=== PATIENT | male | born 1995 | race Caucasian/White ===

== ENCOUNTER 2019-10-22 00:50 | Emergency (ER) | payer OTHER, SELFPAY ==
[~2019-10-22] VITALS: Ht 165.1 cm; Wt 97.5 kg
[2019-10-22 01:18] VITALS: BP 140/85
--- NOTE | 2019-10-22 01:21 | NUR ---
PT IN TENT
--- NOTE | 2019-10-22 01:50 | NUR ---
COVID SWAB COLLECTED AND WALKED OVER TO LAB.
--- NOTE | 2019-10-22 02:10 | NUR ---
Patient discharged with v/s stable. Written and verbal after care instructions given and explained. Patient alert, oriented and verbalized understanding of instructions. Ambulatory with steady gait. All questions addressed prior to discharge. ID band removed. Patient advised to follow up with PMD. Rx of ALBUTEROL AND ZOFRAN given. Patient educated on indication of medication including possible reaction and side effects. Opportunity to ask questions provided and answered.
[2019-10-22 02:26] VITALS: BP 140/85
== END 2019-10-22 02:10 | disposition home or self-care (01) ==
LOC: MED 00:50
DX: J18.9 Pneumonia, unspecified organism (principal); Z20.828 Contact with and (suspected) exposure to other viral communicable diseases
CPT/HCPCS: 99283; U0003

== ENCOUNTER 2020-03-14 10:23 | Emergency (ER) | payer OTHER, SELFPAY ==
[~2020-03-14] VITALS: Ht 167.6 cm; Wt 97.5 kg
[2020-03-14 10:30] VITALS: BP 125/68
--- NOTE | 2020-03-14 10:32 | NUR ---
Patient placed in tent for covid precaution
--- NOTE | 2020-03-14 10:34 | NUR ---
25 y/o male from home c/o headache, chest discomfort, and loss of smell since 03/01. Unknown + covid contact. Denies SOB. RR even and unlabored. States 5/10 pressure to sternal chest. Awake and alert. VSS
--- NOTE | 2020-03-14 11:04 | NUR ---
Covid swab collected and walked to lab.
== END 2020-03-14 12:07 | disposition home or self-care (01) ==
LOC: MED 10:23
DX: R05 Cough (principal); Z20.828 Contact with and (suspected) exposure to other viral communicable diseases
CPT/HCPCS: 99283; U0003

== ENCOUNTER 2020-04-11 13:52 | Emergency (ER) | payer OTHER ==
[~2020-04-11] VITALS: Ht 165.1 cm; Wt 99.8 kg
[2020-04-11 14:02] VITALS: BP 125/79
--- NOTE | 2020-04-11 14:30 | NUR ---
25 YEAR OLD MALE COMPLAINS OF CHEST/ABDOMINAL TINGLE + PAIN SINCE YESTERDAY. PT STATES HE IS UNSURE IT IS PAIN, BUT FEELS THE SENSATION ON AND OFF. PT AOX4, BREATHING EVEN AND UNLABORED, SKIN WARM AND DRY. PMH - HYPOTHYROID, ANXIETY, HTN ALLERGIES - NKA
[2020-04-11 15:06] VITALS: BP 125/79
--- NOTE | 2020-04-11 15:06 | NUR ---
Patient discharged with v/s stable. Written and verbal after care instructions given and explained. Patient verbalized understanding. Ambulatory with steady gait. All questions addressed prior to discharge. Advised to follow up with PMD.
== END 2020-04-11 15:06 | disposition home or self-care (01) ==
LOC: MED 13:52
DX: F41.9 Anxiety disorder, unspecified (principal); I10 Essential (primary) hypertension; E07.89 Other specified disorders of thyroid; Z91.14 Patient's other noncompliance with medication regimen; Z90.49 Acquired absence of other specified parts of digestive tract
CPT/HCPCS: 81002; 99282

== ENCOUNTER 2020-07-30 16:19 | Emergency (ER) | payer OTHER ==
[~2020-07-30] VITALS: Ht 165.1 cm; Wt 102.1 kg
[2020-07-30 16:39] VITALS: BP 154/90
--- NOTE | 2020-07-30 17:53 | NUR ---
25/M BIB SELF C/O 08/04 NECK, SHOULDERS, LEGS PAIN X TODAY. DENIES TRAUMA. PMH: DEPRESSION, ANXIETY, SLEEP APNEA, HYPERTHYROID. DENIES N/V/D; SKIN IS PINK/WARM/DRY; AAOX4 WITH EVEN AND STEADY GAIT; LUNGS CLEAR BL; HR EVEN AND REGULAR; PT DENIES ANY FEVER, CP, SOB, OR COUGH AT THIS TIME.
[2020-07-30] MEDS ORDERED: METH750T5 PO (18:12)
[2020-07-30] MEDS ORDERED: NAPR-54 PO (18:12)
--- NOTE | 2020-07-30 18:20 | NUR ---
Patient discharged with v/s stable. Written and verbal after care instructions given and explained. Patient alert, oriented and verbalized understanding of instructions. Ambulatory with steady gait. All questions addressed prior to discharge. ID band removed. Patient advised to follow up with PMD. Rx of ROBAXIN & NAPROXEN given. Patient educated on indication of medication including possible reaction and side effects. Opportunity to ask questions provided and answered.
[2020-07-30 18:21] VITALS: BP 154/90
== END 2020-07-30 18:20 | disposition home or self-care (01) ==
LOC: MED 16:19
DX: S16.1XXA Strain of muscle, fascia and tendon at neck level, initial encounter (principal); M79.10 Myalgia, unspecified site; F32.9 Major depressive disorder, single episode, unspecified; F41.9 Anxiety disorder, unspecified; I10 Essential (primary) hypertension; E03.9 Hypothyroidism, unspecified; X58.XXXA Exposure to other specified factors, initial encounter; Y93.89 Activity, other specified; Y92.89 Other specified places as the place of occurrence of the external cause; Y99.8 Other external cause status
CPT/HCPCS: 81002; 99283

== ENCOUNTER 2020-11-14 09:39 | Emergency (ER) | payer OTHER ==
[~2020-11-14] VITALS: Ht 165.1 cm; Wt 105.2 kg
[~2020-11-14 09:39] MED LIST: METH750T5 PO; NAPR-54 PO
[2020-11-14 09:59] VITALS: BP 128/75
--- NOTE | 2020-11-14 10:02 | NUR ---
PT TO LOBBY.
--- NOTE | 2020-11-14 10:31 | NUR ---
PT IN TRIAGE FOR EKG WITH EMT.
--- NOTE | 2020-11-14 10:36 | NUR ---
PT TO WAIT IN LOBBY.
--- NOTE | 2020-11-14 11:51 | NUR ---
PT CALLED BY [facility] NO ANSWER.
--- NOTE | 2020-11-14 12:25 | NUR ---
PATIENT LEFT WITHOUT BEING SEEN BY DR. RODGERS. NO FURTHER CARE PROVIDED FOR PATIENT.
== END 2020-11-14 12:25 | disposition left against medical advice (07) ==
LOC: MED 09:39
DX: R00.2 Palpitations (principal); Z53.21 Procedure and treatment not carried out due to patient leaving prior to being seen by health care provider
CPT/HCPCS: 93005; 99281

== ENCOUNTER 2020-11-14 12:47 | Emergency (ER) | payer OTHER ==
--- NOTE | 2020-11-14 12:55 | NUR ---
Called pt for triage and no answer. Went outside to check covid tent and no one there.
--- NOTE | 2020-11-14 13:15 | NUR ---
Called pt for triage for second time and no answer. Went outside to check covid tent and no one there.
--- NOTE | 2020-11-14 13:21 | NUR ---
made aware. Pt LWBS.
== END 2020-11-14 12:55 | disposition left against medical advice (07) ==
LOC: MED 12:47
DX: Z53.21 Procedure and treatment not carried out due to patient leaving prior to being seen by health care provider (principal)

== ENCOUNTER 2021-01-31 18:46 | Emergency (ER) | payer OTHER ==
[~2021-01-31] VITALS: Ht 165.1 cm; Wt 107.5 kg
[2021-01-31 18:50] VITALS: BP 162/88
[2021-01-31] MEDS ORDERED: LORazepam 1 MG TAB PO ONE (19:05)
[2021-01-31 19:54] VITALS: BP 144/83
--- NOTE | 2021-01-31 19:54 | NUR ---
PATIENT CLEARED FOR DISCHARGE AT THIS TIME. PATIENT HAS NO FURTHER COMPLAINTS OR CONCERNS FOLLOWING DISHCARGE TEAHCING AT THIS TIME. ADVISED TO FOLLOW UP WITH PCP.
== END 2021-01-31 19:54 | disposition home or self-care (01) ==
LOC: MED 18:46
DX: F41.9 Anxiety disorder, unspecified (principal); R00.2 Palpitations
CPT/HCPCS: 93005; 99283

== ENCOUNTER 2021-03-22 11:46 | Emergency (ER) | payer OTHER ==
[~2021-03-22] VITALS: Ht 165.1 cm; Wt 104.3 kg
[2021-03-22 11:52] VITALS: BP 128/74
--- NOTE | 2021-03-22 11:52 | NUR ---
EMS trans pt to room 4
--- NOTE | 2021-03-22 11:53 | NUR ---
26 y/o BIBA for anxiety. Pt was walking to our facility and called 911. Pt claims he is having trouble sleeping and experiencing anxiety after not taking his mood disorder medications. Pt is able to make all needs known. pmHx:Hypothyroid, anxiety, htn, bi-polar mood disorder home meds: See list Allergies: Denies
--- NOTE | 2021-03-22 11:54 | NUR ---
Dr Graham at bedside to assess pt
[2021-03-22] MEDS ORDERED: LORazepam 0.5 MG TAB PO ONE (12:00)
== END 2021-03-22 12:47 | disposition home or self-care (01) ==
LOC: MED 11:46
DX: F41.9 Anxiety disorder, unspecified (principal); E03.9 Hypothyroidism, unspecified; F31.9 Bipolar disorder, unspecified
CPT/HCPCS: 99283